=== PATIENT | male | born 1985 | race Two or more races ===

== ENCOUNTER 2021-06-27 11:54 | Outpatient (REF) | payer OTHER, SELFPAY ==
[2021-06-27 15:23] LABS: COVID-19 Test Positive (Negative)
== END 2021-06-27 11:55 | disposition home or self-care (01) ==
LOC: HO.LAB 11:54
PROVIDERS: Visit Provider Internal Medicine
DX: Z20.822 Contact with and (suspected) exposure to COVID-19 (principal)
CPT/HCPCS: 36415; 87635; C9803